=== PATIENT | male | born 1965 | race Caucasian/White ===

== ENCOUNTER 2019-04-02 23:36 | Emergency (ER) | payer OTHER ==
--- OUTSIDE RECORDS SUMMARY | 2019-04-02 23:51 | XMS REPORT | Continuity of Care Document ---
:1965 External Reference #:[id number] Author Name Benja Mclaughlin M.D. Address [address] [facility] [address] [place] [address] Care Team Providers Name Role Phone Benja Mclaughlin M.D. Care Team Information Quality Assurance Monitor Body Unavailable Payers Date Identification Numbers Payment Provider Subscriber Effective: 2014 Policy Number: [id number] 01 [employer] Mult[employer] Oswaldo Ding Group Number: [id number] [address] Group Name: [place] [address] PayID: [id number] Problems Active Problems Provider Date Pure hypercholesterolemia Benja Mclaughlin M.D. Onset: 11/02/2011 Family History Date Family Member(s) Observation Comments Father CAD started in his early to mid 50s; CABG x4 age 56 Father Diabetes, Type II Father Carotid Stenosis Number of Children 2 First Daughter Ethel 1990 First Daughter industrial arts public school teacher Second Daughter Vannesa 1992 Second Daughter industrial arts public school teacher Number of Siblings Siblings: 2 First Brother Skin Cancer pt unsure of type First Brother Walter 1961 Second Brother Edward 1963 Social History Type Date Description Comments Sex Unknown Marital Status Work Status Currently Working at [employer], for [employer] Use Reviewed: 11/21/14 Denies Cigarette Use Smoking Status Reviewed: 11/21/14 Denies Cigarette Use Tobacco Use Start: Unknown Non Smoker Exercise Exercises regularly Type/Frequency Allergies, Adverse Reactions, Alerts Active Allergies Reaction Severity Comments Date No Known Drug Allergy 01/10/2011 Medications Active Medications SIG Qnty Indications Ordering Date Provider Atorvastatin Calcium take one tablet by 90tabs E78.00 Benja Mclaughlin 02/2019 mouth every day for M.DBo 40mg Tablets high cholesterol History Medications Atorvastatin Calcium take 1 tablet daily 90tabs E78.00 Arnoldo, 2017 - to reduce Hai Yousif 11/16/2018 10mg Tablets cholesterol No Active Medications Unknown 02/18/2016 - 12/15/2017 Clarithromycin 1 bid 20tabs J06.9 Lionel Jesus 02/08/2016 - 500mg Hai Rivera 02/18/2016 Tablets No Active Medications Unknown 11/21/2014 - 02/08/2016 No Active Medications Unknown 11/24/2013 - 11/24/2013 Atorvastatin Calcium take 1 tablet daily 90tabs 272.0 Arnoldo, 11/24/2013 - to reduce Hai Yousif 11/20/2014 10mg Tablets cholesterol; fasting bloodwork needed about 2 months after starting this med Azithromycin 2 by mouth on day 6tabs 786.2 Arnoldo 10/29/2013 - 250mg then 1 by mouth Hai Yousif 11/03/2013 Tablets daily for 4 more days Benzonatate 1-2 by mouth three 30caps 786.2 Arnoldo, 10/29/2013 - 100mg times a day as Hai Yousif 11/08/2013 Capsules needed for cough No Active Medications Unknown 11/08/2011 - 10/29/2013 Azithromycin 2 by mouth on day 6tabs 786.2 Arnoldo, 11/02/2011 - 250mg then 1 by mouth Hai Yousif 11/07/2011 Tablets daily for 4 more days Magnesium Citrate drink the contents 296ml 564.09 Arnoldo, 01/11/2011 - of 1 bottle, for Hai Yousif 11/01/2011 1.745GM/30ML Solution constipation Immunizations CPT Code Status Date Vaccine Lot # [id number] Given 09/16/2015 Influenza Virus Vaccine, Quadrivalent, Split, [id number] Preservative Free 20338 Given 11/02/2011 Adacel or Boostrix, TDaP [id number] Refused 11/08/2017 Influenza Virus Vaccine, Quadrivalent, Split, Preservative Free [id number] Refused 11/02/2011 Flu, Split Virus 3Yrs Vital Signs Date Vital Result Comment 03/29/2019 2:54pm BP Systolic 118 mmHg per nurse BP Diastolic 68 mmHg per nurse BP Systolic Recheck 148 mmHg R arm sitting; 134/83 w/ auto cuff BP Diastolic Recheck 90 mmHg R arm sitting; 134/83 w/ auto cuff Weight 211.00 lb 11/16/2018 9:55am BP Systolic 120 mmHg BP Diastolic 80 mmHg Heart Rate 72 /min reg Respiratory Rate 12 /min not laboured Height 70.75 inches 5'10.75" Weight 218.00 lb BMI (Body Mass Index) 30.6 kg/m2 11/08/2017 8:45am BP Systolic 122 mmHg BP Diastolic 80 mmHg Heart Rate 70 /min reg Respiratory Rate 12 /min not laboured Height 70.75 inches 5'10.75" Weight 209.00 lb BMI (Body Mass Index) 29.4 kg/m2 02/08/2016 10:10am BP Systolic 118 mmHg BP Diastolic 80 mmHg Body Temperature 98.3 F 02/04/2016 5:56pm BP Systolic 120 mmHg BP Diastolic 82 mmHg Body Temperature 98.8 F Weight 214.00 lb with shoes 09/16/2015 1:45pm BP Systolic 112 mmHg BP Diastolic 78 mmHg Height 70.75 inches 5'10.75" Weight 207.00 lb BMI (Body Mass Index) 29.1 kg/m2 11/21/2014 11:25am BP Systolic 116 mmHg BP Diastolic 78 mmHg Body Temperature 98.8 F Height 71.5 inches 5'11.50" Weight 218.00 lb BMI (Body Mass Index) 30.0 kg/m2 10/29/2013 12:11pm BP Systolic 124 mmHg BP Diastolic 82 mmHg Body Temperature 98.6 F Height 70.5 inches 5'10.50" Weight 214.00 lb BMI (Body Mass Index) 30.3 kg/m2 11/02/2011 2:03pm BP Systolic 118 mmHg BP Diastolic 78 mmHg Body Temperature 98.3 F Height 71.50 inches 5'11.50" Weight 214.00 lb BMI (Body Mass Index) 29.4 kg/m2 01/10/2011 2:53pm BP Systolic 120 mmHg BP Diastolic 80 mmHg BP Systolic Recheck 120 mmHg R arm sitting BP Diastolic Recheck 80 mmHg R arm sitting Heart Rate 68 /min reg Respiratory Rate 12 /min not laboured Height 71.50 inches 5'11.50" Weight 207.00 lb BMI (Body Mass Index) 28.5 kg/m2 Results Test Date Facility Test Result H/L Range Note Urine Micro Inhouse 11/16/2018 In House Ua WBC - 1 Ua RBC 0-2 Ua Casts - Ua Epi - Ua Other - Ua Glucose - Ua Bilirubin - Ua Ketones tr Ua Specific Monarch 1.025 Ua Blood H Tr Ua PH 6.0 Ua Protein - Ua Urobilinogen - Ua Nitrite - Ua Leukocytes - Laboratory test finding 11/16/2018 [facility] Alt 44 U/L N 7-52 2 [phone] Lipid Profile 11/16/2018 [facility] Triglycerides 116 mg/dL 3 (Trig/Chol/HDL) [phone] Cholesterol 282 mg/dL 4 HDL Cholesterol 52.5 mg/dL 5 LDL Cholesterol 206 mg/dL 6 Lipid Profile (Trig/Chol/HDL) 11/08/2017 [facility] Triglycerides 165 mg/dL 7 [phone] Cholesterol 274 mg/dL 8 HDL Cholesterol 48.8 mg/dL 9 LDL Cholesterol 192 mg/dL 10 Laboratory test 11/08/2017 [facility] Alt 33 U/L N 7-52 11 finding [phone] Laboratory test 02/04/2016 In House Culture Throat negative finding Laboratory test 10/26/2015 [facility] Surgical SEE RESULT 12 finding [phone] Pathology BELOW Liver Function 09/09/2015 [facility] Total Protein 6.5 g/dL N 6.4- 8.9 Panel [phone] Albumin 4.3 g/dL N 3.2-5.2 Globulin 2.2 g/dL N 2-4 Albumin/Globulin Ratio 2.0 N 1-3 Total Bilirubin 0.70 mg/dL N 0.2-1.0 Direct Bilirubin 0.10 mg/dL N 0.03-0.18 Indirect Bilirubin 0.6 mg/dL N 0.3-1.0 Alkaline Phosphatase 59 U/L N 34-104 Alt 32 U/L N 7-52 Ast 28 U/L N 13-39 Lipid Profile 09/09/2015 [facility] Triglycerides 174 mg/dL N 13 (Trig/Chol/HDL) [phone] Cholesterol 223 mg/dL N 14 HDL Cholesterol 35.2 mg/dL N 15 LDL Cholesterol 153 mg/dL N 16 Rapid Influenza A 11/19/2014 [facility] Rapid Influenza A NEGATIVE 17 B Antigen [phone] B Antigen Laboratory test 11/19/2014 [facility] Troponin I 0.00 ng/mL N <0.03 18 finding [phone] CBC Auto Diff 11/19/2014 [facility] White Blood Count 5.8 10^3/uL N 4.8-10. [phone] Red Blood Count 5.14 10^6/uL N 4.0-5.4 Hemoglobin 16.6 g/dL N 14.0-18.0 Hematocrit 47 % N 42-52 Mean Corpuscular Volume 91 fL N 80-94 Mean Corpuscular Hemoglobin 32 pg High 27-31 Mean Corpuscular HGB Conc 35 g/dL N 31-36 Red Cell Distribution Width 13 % N 10.5-15 Platelet Count 157 10^3/uL N 150-450 Mean Platelet Volume 10 um3 N 7.4-10.4 Abs Neutrophils 3.5 10^3/uL N 1.5-7.7 Abs Lymphocytes 1.3 10^3/uL N 1.0-4.8 Abs Monocytes 0.8 10^3/uL N 0-0.8 Abs Eosinophils 0.1 10^3/uL N 0-0.6 Abs Basophils 0 10^3/uL N 0-0.2 Abs Nucleated RBC 0 10^3/uL N Granulocyte % 59.8 % N 38-83 Lymphocyte % 22.5 % Low 25-47 Monocyte % 14.5 % High 1-9 Eosinophil % 2.3 % N 0-6 Basophil % 0.9 % N 0-2 Nucleated Red Blood Cells % 0.1 N Comp Metabolic Panel 11/19/2014 [facility] Sodium 136 mmol/L N 133- 145 [phone] Potassium 3.6 mmol/L N 3.5-5.0 Chloride 102 mmol/L N 101-111 Co2 Carbon Dioxide 27 mmol/L N 22-32 Anion Gap 7 mmol/L N 2-11 Glucose 107 mg/dL High 70-100 Blood Urea Nitrogen 17 mg/dL N 6-24 Creatinine 1.18 mg/dL High 0.67-1.17 BUN/Creatinine Ratio 14.4 N 8-20 Calcium 9.3 mg/dL N 8.6-10.3 Total Protein 7.6 g/dL N 6.4-8.9 Albumin 4.4 g/dL N 3.2-5.2 Globulin 3.2 g/dL N 2-4 Albumin/Globulin Ratio 1.4 N 1-3 Total Bilirubin 0.80 mg/dL N 0.2-1.0 Alkaline Phosphatase 70 U/L N 34-104 Alt 73 U/L High 7-52 Ast 48 U/L High 13-39 Egfr Non- 65.6 N >60 Egfr 84.4 N >60 19 Laboratory test 11/19/2014 [facility] Creatine 256 U/L High 10-223 finding [phone] Kinase CKMB 11/19/2014 [facility] CKMB ng/mL 3.1 ng/mL N 0.6-6.3 [phone] Laboratory test 11/19/2014 [facility] Troponin I 0.00 ng/mL N <0.03 20 finding [phone] Inr/Protime 11/19/2014 [facility] Inr 0.87 N 0.85-1.06 [phone] Laboratory test 11/19/2014 [facility] Activated 29.8 seconds N 24.0- 36.1 finding [phone] Partial Thrombo Time C Reactive Protein 17.20 mg/L High < 5.00 21 D Dimer Quantitative < 200 ng/mL N Less Than 230 22 Erythrocyte Sed Rate 17 mm/Hr High 0-14 CBC With Manual 01/10/2011 [facility] White Blood Count 6.6 CUMM 4.8 -10.8 Diff [phone] Red Cell Count 5.05 CUMM 4.6-6.2 Hemoglobin 15.8 g/dL 14.0-18.0 Hematocrit 46 % 42-52 Mean Corpuscular Volume 91 um3 80-94 Mean Corpuscular Hemoglob 31 pg 27-31 Mean Corpuscular HGB Cone 34 g/dL 32-36 Redcell Distribution WDTH 13 % 10.5-15 Platelet Count 180 CUMM 150-450 Mean Platelet Volume 10.6 um3 High 7.4-10.4 Polysegmented Neutrophil 78 % 38-83 Band Neutrophil 4 % 0-8 Lymphocyte 14 % Low 25-47 Monocyte 4 % 0-13 Absolute Neutrophil Count 5.4 RBC Morphology NORMAL Comp Metabolic Panel 01/10/2011 [facility] Sodium 139 mmol/L 135- 145 [phone] Potassium 4.5 mmol/L 3.5-5.0 Chloride 103 mmol/L 101-111 Co2 (Carbon Dioxide) 28.0 mmol/L 22-32 Anion Gap 8.0 mmol/L 2-11 23 Glucose 69 mg/dL Low 70-100 BUN 20 mg/dL 6-24 Creatinine 1.20 mg/dL 0.50-1.40 One Over Creatinine 0.80 BUN/Creatinine Ratio 16.7 8-20 Calcium 9.3 mg/dL 8.1-9.9 Total Protein 7.0 GM/DL 6.2-8.1 Albumin 4.5 GM/DL 3.6-5.4 Globulin 2.5 GM/DL 2-4 Albumin/Globulin Ratio 1.8 1-3 Bilirubin Total 1.2 mg/dL 0.4-1.5 24 Alkaline Phosphatase 67 U/L 39-117 Alt (SGPT) 30 U/L 17-63 Ast (Sgot) 40 U/L 12-42 eGFR Non- 65.5 > 60 eGFR 84.2 > 60 25 1 void, clear, yellow 2 FASTING 12 HOUR 3 Desirable: <150 Borderline High: 150-199 High: 200-499 Very High: >500 4 Desirable: <200 Borderline High: 200-239 High: >239 5 Low: <40 Desirable: 40-60 High: >60 6 Desirable: <100 Near Optimal: 100-129 Borderline High: 130-159 High: 160-189 Very High: >189 7 Desirable: <150 Borderline High: 150-199 High: 200-499 Very High: >500 8 Desirable: <200 Borderline High: 200-239 High: >239 9 Low: <40 Desirable: 40-60 High: >60 10 Desirable: <100 Near Optimal: 100-129 Borderline High: 130-159 High: 160-189 Very High: >189 11 FASTING 12 HOUR 12 SEE RESULT BELOW Name: OSWALDO DING : [address]: Micah Sawyer MD Acct: [id number] Unit: [id number] AGE: 50 Location: ENDOCEC Re10/26/15 SEX: M Status: REG REF SPEC: [id number] MARYANN: 10/26/15-1314 [facility] DR: Micah Sawyer MD REQ: [id number] RECD: 10/26/15 STATUS: NAFISA CAIN DR: Benja Mclaughlin MD _ ORDERED: LEVEL IV FINAL DIAGNOSIS Colon, distal sigmoid, biopsy: -- Tubular adenoma. -- No high grade dysplasia or malignancy. CLINICAL HISTORY Usual bowel habit - every day with no blood. Negative family history POST-OPERATIVE DIAGNOSIS Colonoscopy to cecum with ease, excellent prep - 1 lesion only. Sigmoid polyp; 5 years GROSS DESCRIPTION The specimen is received in formalin labeled, Biopsy Distal Sigmoid Polyp, and consists of three starr irregular soft tissue fragments ranging from 0.3 x 0.3 x 0.2 cm to 0.5 x 0.2 x 0.2 cm, which are submitted entirely in one cassette. Signed (signature on file) Mayda Henao MD [id number] END OF REPORT * ML=Testing performed at Main Lab DEPARTMENT OF PATHOLOGY, [address] [place] [id number] Luke Donovan M.D. Director [facility] # [id number] 13 Desirable <150 Borderline high 150-199 High 200-499 Very High >500 14 Desirable <200 Borderline high 200-239 High >239 15 Low <40 Desirable: 40-60 High: >60 16 Desirable: <100 mg/dL Near Optimal: 100-129 mg/dL Borderline High: 130-159 mg/dL High: 160-189 mg/dL Very High: >189 mg/dL 17 RUN DATE: 11/20/14 [facility] LAB LIVE PAGE 1 RUN TIME: [address] [place] [address] Specimen Inquiry Name: OSWALDO DING : [address]: Jesús Mora MD Acct: [id number] Unit: [id number] AGE: 49 Location: ED Re11/19/14 SEX: M Status: DEP ER SPEC: [id number] MARYANN: 11/19/[address]: Jefferson Saldana DEVELOPER RELATIONS MANAGER REQ: [id number] RECD: 11/19/14 STATUS: ISABELA CAIN DR: Benja Mora MD _ SOURCE: [facility]: ORDERED: Rapid Flu A B Procedure Result Verified Site Rapid Influenza A B Antigen Final 11/20/14- 0640 ML Organism 1 Negative Influenza A B Antigen testing by enzyme immunoassay. Cell culture testing can be performed to confirm negative test results and to assist in detecting other viruses that can produce similar clinical symptoms. Please notify Microbiology Lab if further testing is desired. END OF REPORT * ML=Testing performed at Main Lab DEPARTMENT OF PATHOLOGY, [address] [place] [address] Luke Donovan M.D. Director [facility] # [id number] 18 Reference Range and Interpretation: TnI (ng/mL) Interpretation Less Than 0.03 ng/mL Not supportive of diagnosis of [place] 0.03 - 0.50 ng/mL Indeterminate: suggest serial studies if clinically indicated. Greater than 0.5 ng/mL Consistent with diagnosis of [place] 19 Because ethnic data is not always readily available, this report includes an eGFR for both -Americans and non- Americans. The National Kidney Disease Education Program (NKDEP) does not endorse the use of the MDRD equation for patients that are not between the ages of 18 and 70, are , have extremes of body size, muscle mass, or nutritional status, or are non- or non-. According to the National Kidney Foundation, irrespective of diagnosis, the stage of the disease is based on the level of kidney function: Stage Description GFR(mL/min/1.73 m(2)) 1 Kidney damage with normal or decreased GFR 90 2 Kidney damage with mild decrease in GFR 60-89 3 Moderate decrease in GFR 30-59 4 Severe decrease in GFR 15-29 5 Kidney failure <15 (or dialysis) 20 Reference Range and Interpretation: TnI (ng/mL) Interpretation Less Than 0.03 ng/mL Not supportive of diagnosis of [place] 0.03 - 0.50 ng/mL Indeterminate: suggest serial studies if clinically indicated. Greater than 0.5 ng/mL Consistent with diagnosis of [place] 21 Acute inflammation: >10.00 22 Please note: The following may produce a false positive D Dimer test: - Rheumatoid factor greater than 60 IU/ml - Plasma hemoglobin greater than 0.05 gm/dl - Bilirubin greater than 50 mg/dl - Lipids greater than 1000 mg/dl - FDP greater than 20 ug/ml 23 Anion gap measurement may be of limited value in the presence of any alkalosis, especially in a combined acid base disorder. . 24 A metabolite of Naproxen, O-desmethylnaproxen, has been shown to interfere with the Jendrassik-Jose method for measuring total bilirubin. Samples from patients who have taken Naproxen have shown spurious elevation in total bilirubin levels. 25 Because ethnic data is not always readily available, this report includes an eGFR for both -Americans and non- Americans. The National Kidney Disease Education Program (NKDEP) does not endorse the use of the MDRD equation for patients that are not between the ages of 18 and 70, are , have extremes of body size, muscle mass, or nutritional status, or are non- or non-. According to the National Kidney Foundation, irrespective of diagnosis, the stage of the disease is based on the level of kidney function: Stage Description GFR(mL/min/1.73 m(2)) 1 Kidney damage with normal or decreased GFR 90 2 Kidney damage with mild decrease in GFR 60-89 3 Moderate decrease in GFR 30-59 4 Severe decrease in GFR 15-29 5 Kidney failure <15 (or dialysis) Procedures Date Code Description Status 10/26/2015 [id number] Colonoscopy Completed Encounters Type Date Location Provider Dx Diagnosis Office Visit 03/29/2019 Main Office Benja Mclaughlin, R42 Dizziness and 2:00p Hai giddiness Office Visit 11/16/2018 Main Office Benja Mclaughlin, Z00.00 Encntr for general 9:45a M.D. adult medical exam w/o abnormal findings E78.00 Pure hypercholesterolemia, unspecified Z23 Encounter for immunization Office Visit 11/08/2017 8:30a Main Office Benja Mclaughlin Z00.00 Encntr for M.DBo general adult medical exam w/o abnormal findings E78.00 Pure hypercholesterolemia, unspecified Z71.89 Other specified counseling Office Visit 02/08/2016 10:00a Main Office Lionel Spaulding06.9 Acute upper Hai Rivera respiratory infection, unspecified Office Visit 02/04/2016 5:00p Main Office Lionel Chun.9 Acute upper Hai Rivera respiratory infection, unspecified J02.9 Acute pharyngitis, unspecified J02.8 Acute pharyngitis due to other specified organisms Office Visit 09/16/2015 Main Office Arnoldo E78.0 Pure hypercholesterolemia 1:30p Hai Yousif R74.0 Nonspec elev of levels of transamns & lactic acid dehydrgnse Z12.11 Encounter for screening for malignant neoplasm of colon D48.5 Neoplasm of uncertain behavior of skin Z23 Encounter for immunization Z41.8 Encntr for oth proc for purpose oth [facility] Office Visit 11/21/2014 11:00a Main Office Benja Mclaughlin, 786.50 Pain Chest M.D. Unspec 272.0 Hypercholesterolemia Pure 790.4 Transaminase Or Lactic Acid Dehydrogenase Elevation Nonspec 465.9 URI Upper Respiratory Infections Acute Unspec Sites 786.2 Cough Office Visit 10/29/2013 11:30a Main Office Benja Mclaughlin, 465.9 URI Upper M.D. Respiratory Infections Acute Unspec Sites 786.2 Cough 272.0 Hypercholesterolemia Pure Office Visit 11/02/2011 1:30p Main Office Benja Mclaughlin, 465.9 URI Upper M.D. Respiratory Infections Acute Unspec Sites 786.2 Cough 272.0 Hypercholesterolemia Pure V65.49 Counseling Other Spec V06.1 Cmqynwsftk-Wecyvjz-Gzpreaca Combined (DTaP) V07.2 Prophylactic Immunotherapy Office Visit 01/10/2011 2:15p Main Office Benaj Mclaughlin, 780.4 Dizziness & M.D. Giddiness 787.02 Nausea Alone 789.07 Pain Abdominal Generalized 780.94 Early Satiety Plan of Treatment Future Appointment(s):11/18/2019 2:00 pm - Benja Mclaughlin M.D. at Main [id number]/29/2019 - Benja Mclaughlin M.D.R42 Dizziness and giddinessComments: Very mild and fleeting Sxs, more an off balance than an true vertiginous feeling. Cause NYD. No red flags. Advised observation alone. If Sxs very persistent or worsening he will RTO.
[2019-04-02] MEDS ORDERED: NS 0.9% 1000 ML** 1,000 ML IV ONE (23:58)
[2019-04-03 00:42] LABS: ABS Eosinophils 0.1 10^3/ul (0-0.6); ABS Lymphocytes 1.4 10^3/ul (1.0-4.8); ABS Monocytes 0.5 10^3/ul (0-0.8); ABS Neutrophils 5.5 10^3/ul (1.5-7.7); Eosinophil % 1.2 %; Hematocrit 47 % (42-52); Mean Corpuscular HGB Conc 34 g/dL (31-36); Mean Corpuscular Hemoglobin 31 pg (27-31); Mean Corpuscular Volume 91 fL (80-94); Mean Platelet Volume 9.9 fL (7.4-10.4); Nucleated Red Blood Cells % 0.1; Platelet Count 166 10^3/uL (150-450); Red Blood Count 5.17 10^6 /uL (4.18-5.48); Red Cell Distribution Width 14 % (10.5-15); White Blood Count 7.6 10^3/uL (3.5-10.8)
[2019-04-03 00:56] LABS: INR 0.93 (0.82-1.09)
[2019-04-03 00:58] LABS: Albumin 4.6 g/dL (3.2-5.2); Albumin/Globulin Ratio 1.6 (1-3); BUN/Creatinine Ratio 18.1 (8-20); Calcium 9.5 mg/dL (8.6-10.3); EGFR African American 89.1 (>60); EGFR Non-African American 73.6 (>60); Globulin 2.9 g/dL (2-4); Magnesium 2.3 mg/dL (1.9-2.7); Potassium 4.3 mmol/L (3.5-5.0); Total Bilirubin 0.6 mg/dL (0.2-1.0); Total Protein 7.5 g/dL (6.4-8.9)
[2019-04-03 01:00] LABS: Troponin I 0.01 ng/mL (<0.04)
[2019-04-03 01:12] LABS: TSH (Thyroid Stimulating Horm) 2.75 mcIU/mL (0.34-5.60)
--- NOTE | 2019-04-03 01:15 | ED ---
Complex/Multi-Sys Presentation - HPI Summary HPI Summary: Patient is a 54 y/o M presenting to ED with complaints of episodes of dizziness , left sided facial tingling, neck stiffness. He reports episodes of such Sx onset around two weeks ago with an episode tonight last a couple of hours. Dizziness is described as light-headedness, patient denies any room-spinning sensation. In the room, he notes some light-headedness present that is less severe than previously. Patient reports occasional intermittent posterior headaches but denies any at present. Urinary Sx and fever are denied, no known tick bites. He notes that he is outside frequently. Patient additionally states that Sx have typically onset after eating food and notes that he has always needed to have a bowel movement once Sx onset. He reports having a recent increase of his cholesterol medication that he cannot recall the name of at this time. FMHx of HLD, cardiac disease, father from cardiac disease at 86. Patient is not a smoker. On triage, pain is denied, nothing is noted to aggravate/alleviate Sx. Home medications and allergies are reviewed. - History Of Current Complaint Chief Complaint: EDDizziness Time Seen by Provider: 04/03/19 01:01 Hx Obtained From: Patient Onset/Duration: Lasting Hours - episode tonight, Lasting Weeks - episodes onset two weeks ago, Still Present - light headed Timing: Intermittent, Lasting:, Hours - episode tonight, Weeks - episodes onset two weeks ago Severity Currently: None Location: Pain At: - posterior GRULLON Character: Typical Headache Aggravating Factor(s): nothing Alleviating Factor(s): nothing Associated Signs And Symptoms: Positive: Dizziness, Other - POSITIVE - NECK STIFFNESS, LEFT SIDED FACIAL TINGLING, OCCASIONAL INTERMITTENT GRULLON; NEGATIVE - URINARY SX, TICK BITES. Negative: Fever - Allergies/Home Medications Allergies/Adverse Reactions: Allergies Allergy/AdvReac Type Severity Reaction Status Date / Time No Known Allergies Allergy Verified 04/02/19 23:44 Home Medications: Home Medications Atorvastatin* [Lipitor*] 40 mg PO QPM 04/03/19 [History Confirmed 04/03/19] PMH/Surg Hx/FS Hx/Imm Hx Sensory History: Denies: Hx Legally Blind, Hx Deafness Opthamlomology History: Denies: Hx Legally Blind EENT History: Denies: Hx Deafness Infectious Disease History: No Infectious Disease History: Denies: Traveled Outside the [place] in Last 30 Days - Family History Known Family History: Positive: Cardiac Disease, Other - FMHX OF HLD - Social History Alcohol Use: Occasionally Substance Use Type: Reports: None Smoking Status (MU): Never Smoked Tobacco Review of Systems Constitutional: Other - NEGATIVE - RECENT TICK BITES Negative: Fever Positive: no symptoms reported - NO URINARY SYMPTOMS REPORTED Musculoskeletal: Other - POSITIVE - NECK STIFFNESS Neurological: Other - POSITIVE - DIZZINESS, TINGLING OF LEFT FACE Positive: Headache All Other Systems Reviewed And Are Negative: Yes Physical Exam - Summary Physical Exam Summary: Appearance: well appearing, no pain distress Skin: warm, dry, reflects adequate perfusion Head/face: normal Eyes: EOMI, ANNIE ENT: mucous membranes moist Neck: supple, non-tender Respiratory: CTA, breath sounds present Cardiovascular: RRR, pulses symmetrical Abdomen: non-tender, soft Bowel Sounds: present Musculoskeletal: normal, strength/ROM intact Neuro: normal, sensory motor intact, A&Ox3, GCS 15, NIH 0, negative hallpike test Triage Information Reviewed: Yes Vital Signs On Initial Exam: Initial Vitals Temp Pulse Resp BP Pulse Ox 97.8 F 71 16 136/102 98 04/02/19 23:43 04/02/19 23:43 04/02/19 23:43 04/02/19 23:43 04/02/19 23:43 Vital Signs Reviewed: Yes Diagnostics - Vital Signs Vital Signs Temp Pulse Resp BP Pulse Ox 04/03/19 01:00 74 140/87 04/02/19 23:43 97.8 F 71 16 136/102 98 - Laboratory Lab Results: Lab Results 04/03/19 04/03/19 04/03/19 Range/Units 00:31 00:31 00:31 WBC 7.6 (3.5-10.8) 10^3/uL RBC 5.17 (4.18-5.48) 10^6 /uL Hgb 16.0 (14.0-18.0) g/dL Hct 47 (42-52) % MCV 91 (80-94) fL MCH 31 (27-31) pg MCHC 34 (31-36) g/dL RDW 14 (10.5-15) % Plt Count 166 (150-450) 10^3/uL MPV 9.9 (7.4-10.4) fL Neut % (Auto) 72.1 % Lymph % (Auto) 19.0 % [place] % (Auto) 7.1 % Eos % (Auto) 1.2 % Baso % (Auto) 0.6 % Absolute Neuts (auto) 5.5 (1.5-7.7) 10^3/ul Absolute Lymphs (auto) 1.4 (1.0-4.8) 10^3/ul Absolute Monos (auto) 0.5 (0-0.8) 10^3/ul Absolute Eos (auto) 0.1 (0-0.6) 10^3/ul Absolute Basos (auto) 0.0 (0-0.2) 10^3/ul Absolute Nucleated RBC 0.0 10^3/ul Nucleated RBC % 0.1 INR (Anticoag Therapy) 0.93 (0.82-1.09) Sodium 137 (135-145) mmol/L Potassium 4.3 (3.5-5.0) mmol/L Chloride 105 (101-111) mmol/L Carbon Dioxide 27 (22-32) mmol/L Anion Gap 5 (2-11) mmol/L BUN 19 (6-24) mg/dL Creatinine 1.05 (0.67-1.17) mg/dL Est GFR ( Amer) 89.1 (>60) Est GFR (Non-Af Amer) 73.6 (>60) BUN/Creatinine Ratio 18.1 (8-20) Glucose 119 H (70-100) mg/dL Lactic Acid (0.5-2.0) mmol/L Calcium 9.5 (8.6-10.3) mg/dL Magnesium 2.3 (1.9-2.7) mg/dL Total Bilirubin 0.60 (0.2-1.0) mg/dL AST 26 (13-39) U/L ALT 38 (7-52) U/L Alkaline Phosphatase 82 (34-104) U/L Troponin I 0.01 (<0.04) ng/mL Total Protein 7.5 (6.4-8.9) g/dL Albumin 4.6 (3.2-5.2) g/dL Globulin 2.9 (2-4) g/dL Albumin/Globulin Ratio 1.6 (1-3) TSH Pending 04/03/19 Range/Units 00:31 WBC (3.5-10.8) 10^3/uL RBC (4.18-5.48) 10^6 /uL Hgb (14.0-18.0) g/dL Hct (42-52) % MCV (80-94) fL MCH (27-31) pg MCHC (31-36) g/dL RDW (10.5-15) % Plt Count (150-450) 10^3/uL MPV (7.4-10.4) fL Neut % (Auto) % Lymph % (Auto) % [place] % (Auto) % Eos % (Auto) % Baso % (Auto) % Absolute Neuts (auto) (1.5-7.7) 10^3/ul Absolute Lymphs (auto) (1.0-4.8) 10^3/ul Absolute Monos (auto) (0-0.8) 10^3/ul Absolute Eos (auto) (0-0.6) 10^3/ul Absolute Basos (auto) (0-0.2) 10^3/ul Absolute Nucleated RBC 10^3/ul Nucleated RBC % INR (Anticoag Therapy) (0.82-1.09) Sodium (135-145) mmol/L Potassium (3.5-5.0) mmol/L Chloride (101-111) mmol/L Carbon Dioxide (22-32) mmol/L Anion Gap (2-11) mmol/L BUN (6-24) mg/dL Creatinine (0.67-1.17) mg/dL Est GFR ( Amer) (>60) Est GFR (Non-Af Amer) (>60) BUN/Creatinine Ratio (8-20) Glucose (70-100) mg/dL Lactic Acid 1.1 (0.5-2.0) mmol/L Calcium (8.6-10.3) mg/dL Magnesium (1.9-2.7) mg/dL Total Bilirubin (0.2-1.0) mg/dL AST (13-39) U/L ALT (7-52) U/L Alkaline Phosphatase (34-104) U/L Troponin I (<0.04) ng/mL Total Protein (6.4-8.9) g/dL Albumin (3.2-5.2) g/dL Globulin (2-4) g/dL Albumin/Globulin Ratio (1-3) TSH Result Diagrams: 04/03/19 00:31 04/03/19 00:31 Lab Statement: Any lab studies that have been ordered have been reviewed, and results considered in the medical decision making process. - CT BRAIN CT CT Interpretation Completed By: Radiologist Summary of CT Findings: BRAIN CT IMPRESSION: No acute intracranial abnormality. THIS REPORT WAS REVIEWED BY DR. SANTANA. - EKG 0013 Cardiac Rate: NL - rate of 60 BPM EKG Rhythm: Sinus Rhythm ST Segment: Non-Specific Summary of EKG Findings: EKG showed sinus rhythm with rate of 60 BPM, normal axis, normal intervals, non-specific ST. National Institutes Of Health - NIH Scale Level of Consciousness: Alert/Keenly Responsive Ask Patient the Month and His/Her Age: Both Correct Ask Pt to Open/Close Eyes and Recapper/Release Non-Paretic Hand: Both Correctly Best Gaze (Only Horizontal Eye Movement): Normal Visual Field Testing: No Visual Loss Facial Paresis-Pt to Smile & Close Eyes or Grimace Symmetry: Normal/Symmetrical Motor Function - Right Arm: No Drift-Holds 10 Seconds Motor Function - Left Arm: No Drift-Holds 10 Seconds Motor Function - Right Leg: No Drift-Holds 10 Seconds Motor Function - Left Leg: No Drift-Holds 10 Seconds Limb Ataxia-Must be out of Proportion to Weakness Present: Absent Sensory (Use Pinprick to Test Arms/Legs/Trunk/Face): Normal Best Language (Describe Picture, Name Items): No Aphasia Dysarthria (Read Several Words): Normal Extinction and Inattention: No Abnormality Total Score: 0 Complex Multi-Symp Course/Dx Course Of Treatment: Patient with intermittent lightheadedness over several days. He has normal laboratories and a normal head CT. EKG is normal and his NIH stroke score is 0. Hallpike testing is negative. He was taking full oral without issue. Lyme testing is presently pending. He will follow closely with primary care physician. - Diagnoses Differential Diagnoses/HQI/PQRI: Metabolic Abnormality, Other - Vertigo, anemia , electrolyte abnormality, Lyme disease Provider Diagnoses: Lightheadedness Discharge - Sign-Out/Discharge Documenting (check all that apply): Patient Departure - discharge Patient Received Moderate/Deep Sedation with Procedure: No - Discharge Plan Condition: Improved Disposition: HOME Patient Education Materials: Lightheadedness (ED) Referrals: Benja Mclaughlin MD [Primary Care Provider] - Additional Instructions: Call your doctor first thing in the morning to schedule prompt follow-up. Lyme disease testing will take several days. Return with persistent lightheadedness , passing out, severe headaches, worse, new symptoms or other concerns. - Billing Disposition and Condition Condition: IMPROVED Disposition: Home - Attestation Statements Document Initiated by Sriibe: Yes Documenting Scribe: YANN GANDARA Provider For Whom Keena is Documenting (Include Credential): NYLA SANTANA MD Scribe Attestation: I, YANN GANDARA, scribed for NYLA SANTANA MD on 04/03/19 at 0440. Scribe Documentation Reviewed: Yes Provider Attestation: The documentation as recorded by the scribeYANN accurately reflects the service I personally performed and the decisions made by me, NYLA SANTANA MD Status of Scribe Document: Viewed
[2019-04-03 02:26] VITALS: BP 118/79
== END 2019-04-03 02:24 | disposition home or self-care (01) ==
LOC: ED 23:36
DX: R42 Dizziness and giddiness (principal); R51 Headache
CPT/HCPCS: 36415; 70450; 80053; 83605; 83735; 84443; 84484; 85025; 85610; 86618; 93005; 99283

== ENCOUNTER 2019-09-05 11:20 | Emergency (ER) | payer OTHER ==
--- OUTSIDE RECORDS SUMMARY | 2019-09-05 11:32 | XMS REPORT | Continuity of Care Document ---
:1965 External Reference #:[id number] Author Name Addie Spears Problems Description No Information Available Social History Type Date Description Comments Sex Unknown Allergies, Adverse Reactions, Alerts Description No Information Available Medications Description No Information Available Immunizations Description No Information Available Vital Signs Description No Information Available Results Description No Information Available Procedures Description No Information Available Medical Devices Description No Information Available Encounters Description No Information Available Assessments Description No Information Available Plan of Treatment No Information Available Functional Status Description No Information Available Mental Status Description No Information Available Referrals Description No Information Available
--- OUTSIDE RECORDS SUMMARY | 2019-09-05 11:32 | XMS REPORT | Summary of Care ---
:1965 Author Organization [facility] Address [address] [place] [address] Care Team Providers Name Role Phone Benja Mclaughlin MD Primary Care Provider Reason for Visit Reason Comments Follow Up skin lesion Encounter Details Date Type Department Care Team Description 08/08/2019 Office Visit [facility] Ashley Mcfarlane, Skin lesion (Primary [address] PA-C Dx) [place] [id number] [address] [phone] [place] [id number] Allergies No Known Allergiesdocumented as of this encounter (statuses as of 08/09/2019) Medications No known medicationsdocumented as of this encounter (statuses as of 08/09/2019) Active Problems No known active problemsdocumented as of this encounter (statuses as of 2018) Social History Tobacco Use Types Packs/Day Years Used Date Never Smoker Smokeless Tobacco: Never Used Sex Assigned at Date Recorded Not on file Job Start Date Occupation Industry Not on file Not on file Not on file Travel History Travel Start Travel End No recent travel history available. documented as of this encounter Last Filed Vital Signs Vital Sign Reading Time Taken Comments Blood Pressure - - Pulse - - Temperature - - Respiratory Rate - - Oxygen Saturation - - Inhaled Oxygen Concentration - - Weight 90.7 kg (200 lb) 08/08/2019 1:11 PM EDT Height 180.3 cm (5' 11") 08/08/2019 1:11 PM EDT Body Mass Index 27.89 08/08/2019 1:11 PM EDT documented in this encounter Progress Notes Ashley Mcfarlane PA-C - 08/08/2019 1:00 PM EDTPATIENT: Brandt Michelle : 1965 DATE OF SERVICE: 08/08/2019 [facility] - Procedure PREOPERATIVE DIAGNOSIS: 1. ReExcision Dysplastic Nevus Central Back TITLE OF PROCEDURE: 1. Re-Excision of Upper Mid Back with dimensions of the excision measuring 2 cm in length. PROCEDURE IN DETAIL: The patient was identified and taken to the procedure room where informed consent was obtained and signed. The lesion was identified and a planned incision was drawn over the area.The area was then prepped with Chloraprep and injected with 2% Xylocaine with epinephrine. When adequate anesthesia was achieved, the lesion located on the central back was prepped with Chloraprep and draped in a sterile fashion. A #15 blade scalpel was used to re-excise the lesion with sufficient margins. The specimen was passed off of the surgical field for transport to pathology. Hemostasis was achieved. A 4-0 Nylon suture was used in a running fashion to close and approximate the skin edges. The wound closed very nicely, and the site was cleaned and dried. A dry dressing was applied. He was advised to avoid any vigorous activity or exercise, so as not to put too much tension on the repair. Post operative instructions were discussed with patient He may removed dressing tomorrow and shower over the incision. He will be notified of pathology as soon as it is available, and he will return in 10- 14 days for suture removal. PROCEDURE: Punch Biopsy/Excision Diagnosis: 1. Lesion of left upper back suprior measuring 0.2cm. 2. Lesion of left upper back inferior measuring 0.3cm Title of Procedure: 1. 5 mm Punch Biopsy excision of skin lesion of left upper back superior. 2. 5 mm Punch Biopsy excision of skin lesion of left upper back inferiior. Procedure in Detail: The patient provided informed consent after planned procedure discussed. The site was cleaned with Chloraprep and injected with 1% Xylocaine with epinephrine. Once local anesthesia was achieved, the areas were prepped with Chloraprep and draped in a sterile fashion. A 5 mm punch biopsy instrument was used to biopsy/excise each lesion and surrounding skin and subcutaneous tissue. The specimens were passed off the surgical field for transport to pathology. 4- 0 Nylon was used to close the biopsy sites.The area was gently cleansed with saline and dried. Bandaid dressing was applied. Patient may showerover the incisions beginning tomorrow, Sutures to be removed in 10-14 days. I will contact patient will results if available prior to post operative appointment. 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 Routine Skin lesion Ordered: 08/08/2019 EXCISION LESION Procedures Routine Skin lesion Ordered: 08/08/2019 Health Maintenance Due Date Last Done Comments DEPRESSION SCREENING 1977 HIV SCREENING 02/14/1980 DIABETES SCREENING 1983 LIPID DISORDER SCREENING 1983 HEPATITIS C SCREENING 2005 COLONOSCOPY SCREENING 2015 ZOSTER IMMUNIZATION SERIES (1 of 2) 2015 INFLUENZA VACCINE (#1) 2019 HPV IMMUNIZATION SERIES Aged Out No longer eligible based on patient's age to complete this topic MENINGOCOCCAL VACCINE IMM Aged Out No longer eligible based on patient's age to complete this topic PNEUMOCOCCAL 0-64 YRS Aged Out No longer eligible based on patient's age to complete this topic documented as of this encounter Results Not on filedocumented in this encounter Visit Diagnoses Diagnosis Skin lesion - Primary Unspecified disorder of skin and subcutaneous tissue documented in this encounter Insurance Payer Benefit Plan / Subscriber ID Effective Dates Phone Address Type Group [employer] xxxxxxxxxxx 2018-Present [employer] Guarantor Name Account Type Relation to Date of Phone Billing Patient Address [place] Personal/Family 1965 [phone] ([address]) [address] [phone] [place], [place] (Work) [id number] documented as of this encounter
[2019-09-05 11:55] LABS: ABS Basophils 0.1 10^3/ul (0-0.2); ABS Monocytes 0.4 10^3/ul (0-0.8); ABS Neutrophils 4.8 10^3/ul (1.5-7.7); Eosinophil % 0.1 %; Hematocrit 44 % (42-52); Hemoglobin 15.4 g/dL (14.0-18.0); Lymphocyte % 16.2 %; Mean Corpuscular HGB Conc 35 g/dL (31-36); Mean Corpuscular Hemoglobin 31 pg (27-31); Mean Corpuscular Volume 90 fL (80-94); Mean Platelet Volume 9.7 fL (7.4-10.4); Nucleated Red Blood Cells % 0.2; Platelet Count 179 10^3/uL (150-450); Red Blood Count 4.91 10^6 /uL (4.18-5.48); Red Cell Distribution Width 13 % (10-15); White Blood Count 6.3 10^3/uL (3.5-10.8)
[2019-09-05 12:07] LABS: Albumin 4.6 g/dL (3.2-5.2); Albumin/Globulin Ratio 1.8 (1-3); EGFR African American 86.2 (>60); EGFR Non-African American 71.3 (>60); Globulin 2.6 g/dL (2-4); Total Protein 7.2 g/dL (6.4-8.9)
[2019-09-05 12:11] LABS: INR 1.09 (0.82-1.09)
--- NOTE | 2019-09-05 13:21 | ED ---
HPI Cardiac - HPI Summary HPI Summary: This patient is a 54-year-old male with history of hypercholesterolemia who presents to the ED with feeling of dizziness 2 months, pressure in the upper anterior neck and back and epigastric area x approximately one week which was worse today. He states he had a f/u with his PCP after first noticing the intermittent dizziness and chest pain and had a holter monitor x 1 day with no findings (this was 1.5mos ago per pt). EKG normal. No blood work, however did obtain blood work 5 mos ago when being seen in the ED for dizziness and neck stiffness (same complaints as today). Lyme was negative. Trop was negative. EKG normal. Sxs are not worse with exertion, or better with rest. He endorses some worsening symptoms with swallowing food and drink and feels he has to chew his food much more now so he doesn't have the chest pressure feeling. Denies dizziness currently. He does have some hoarseness today per , which is new. Denies difficulty or pain with swallowing. Denies throat pain. No fevers , sweats or chills. Denies jaw pain. Has an appointment with Dr. Barber on September 18. Recently seen Edith Cuba from Dr. Mclaughlin's office on Monday last week, but did no further imaging or orders except for set up consult with cards. Fam hx includes father of [place] in late 50's. Mother healthy. Non-smoker, very rare alcohol use - last use 3 weeks ago Caffeine includes 1 cup of coffee per day Medications include: atorvastatin - History of Current Complaint Chief Complaint: EDChestPainROMI Stated Complaint: CHEST PAIN Time Seen by Provider: 09/05/19 11:30 Hx Obtained From: Patient Onset/Duration: Started Hours Ago Timing: Intermittent, Lasting Minutes Initial Severity: Moderate Current Severity: Moderate Pain Intensity: 6 Pain Scale Used: 0-10 Numeric Chest Pain Radiates: No Character: Dull/Aching Aggravating Factor(s): Nothing Alleviating Factor(s): Nothing Associated Signs and Symptoms: Positive: Chest Pain, Dizziness, Hoarseness. Negative: Vision Changes, Anxiety, Recent Stress, Headaches, Numbness, Tingling , Weakness, Shortness of Breath, Palpitations, Cough, Productive Cough, Nonproductive Cough, Calf Pain/Swelling, Vomiting, Bloody Sputum - Allergy/Home Medications Allergies/Adverse Reactions: Allergies Allergy/AdvReac Type Severity Reaction Status Date / Time No Known Allergies Allergy Verified 04/02/19 23:44 PMH/Surg Hx/FS Hx/Imm Hx Previously Healthy: Yes Sensory History: Denies: Hx Legally Blind, Hx Deafness Opthamlomology History: Denies: Hx Legally Blind - Immunization History Hx Pertussis Vaccination: No Immunizations Up to Date: Yes Infectious Disease History: Unable to Obtain/Confirm Infectious Disease History: Denies: Traveled Outside the [place] in Last 30 Days - Family History Known Family History: Positive: Cardiac Disease, Other - FMHX OF HLD - Social History Occupation: Employed Full-time Lives: With Family Alcohol Use: Occasionally Hx Substance Use: No Substance Use Type: Reports: None Hx Tobacco Use: No Smoking Status (MU): Never Smoked Tobacco Review of Systems Negative: Fever, Chills, Fatigue, Skin Diaphoresis Positive: Palpitations, Chest Pain Negative: Shortness Of Breath, Cough Negative: Abdominal Pain, Vomiting, Diarrhea, Nausea Genitourinary: Negative Positive: no symptoms reported, see HPI Positive: Arthralgia - upper back pain Skin: Negative Negative: Anxious, Depressed All Other Systems Reviewed And Are Negative: Yes Physical Exam Triage Information Reviewed: Yes Vital Signs On Initial Exam: Initial Vitals Temp Pulse Resp BP Pulse Ox 99.2 F 77 18 131/76 100 09/05/19 11:22 09/05/19 11:22 09/05/19 11:22 09/05/19 11:22 09/05/19 11:22 Vital Signs Reviewed: Yes Appearance: Positive: Well-Appearing, Well-Nourished Skin: Positive: Warm, Skin Color Reflects Adequate Perfusion Head/Face: Positive: Normal Head/Face Inspection Eyes: Positive: EOMI, ANNIE, Conjunctiva Clear Neck: Positive: Supple, No Lymphadenopathy Respiratory/Lung Sounds: Positive: Clear to Auscultation, Breath Sounds Present Cardiovascular: Positive: Normal, RRR, Pulses are Symmetrical in both Upper and Lower Extremities. Negative: Tachycardia, Leg Edema Left, Leg Edema Right Abdomen Description: Positive: Nontender. Negative: CVA Tenderness (R), CVA Tenderness (L) Musculoskeletal: Positive: Normal, Strength/ROM Intact Neurological: Positive: Speech Normal Psychiatric: Positive: Normal, Affect/Mood Appropriate AVPU Assessment: Alert Procedures - Sedation Patient Received Moderate/Deep Sedation with Procedure: No Diagnostics - Vital Signs Vital Signs Temp Pulse Resp BP Pulse Ox 09/05/19 13:03 69 17 113/78 98 09/05/19 13:00 51 15 95 09/05/19 12:00 65 13 95 09/05/19 11:35 9 09/05/19 11:22 99.2 F 77 18 131/76 100 - Laboratory Lab Results: Lab Results 09/05/19 09/05/19 09/05/19 Range/Units 11:39 11:39 11:39 WBC 6.3 (3.5-10.8) 10^3/uL RBC 4.91 (4.18-5.48) 10^6 /uL Hgb 15.4 (14.0-18.0) g/dL Hct 44 (42-52) % MCV 90 (80-94) fL MCH 31 (27-31) pg MCHC 35 (31-36) g/dL RDW 13 (10-15) % Plt Count 179 (150-450) 10^3/uL MPV 9.7 (7.4-10.4) fL Neut % (Auto) 76.9 % Lymph % (Auto) 16.2 % [place] % (Auto) 5.8 % Eos % (Auto) 0.1 % Baso % (Auto) 1.0 % Absolute Neuts (auto) 4.8 (1.5-7.7) 10^3/ul Absolute Lymphs (auto) 1.0 (1.0-4.8) 10^3/ul Absolute Monos (auto) 0.4 (0-0.8) 10^3/ul Absolute Eos (auto) 0.0 (0-0.6) 10^3/ul Absolute Basos (auto) 0.1 (0-0.2) 10^3/ul Absolute Nucleated RBC 0.0 10^3/ul Nucleated RBC % 0.2 INR (Anticoag Therapy) 1.09 (0.82-1.09) Sodium 138 (135-145) mmol/L Potassium 4.0 (3.5-5.0) mmol/L Chloride 104 (101-111) mmol/L Carbon Dioxide 28 (22-32) mmol/L Anion Gap 6 (2-11) mmol/L BUN 13 (6-24) mg/dL Creatinine 1.08 (0.67-1.17) mg/dL Est GFR ( Amer) 86.2 (>60) Est GFR (Non-Af Amer) 71.3 (>60) BUN/Creatinine Ratio 12.0 (8-20) Glucose 102 H (70-100) mg/dL Calcium 10.0 (8.6-10.3) mg/dL Total Bilirubin 1.00 (0.2-1.0) mg/dL AST 19 (13-39) U/L ALT 22 (7-52) U/L Alkaline Phosphatase 68 (34-104) U/L Troponin I 0.00 (<0.04) ng/mL B-Natriuretic Peptide (<=100) pg/mL Total Protein 7.2 (6.4-8.9) g/dL Albumin 4.6 (3.2-5.2) g/dL Globulin 2.6 (2-4) g/dL Albumin/Globulin Ratio 1.8 (1-3) 09/05/19 Range/Units 11:39 WBC (3.5-10.8) 10^3/uL RBC (4.18-5.48) 10^6 /uL Hgb (14.0-18.0) g/dL Hct (42-52) % MCV (80-94) fL MCH (27-31) pg MCHC (31-36) g/dL RDW (10-15) % Plt Count (150-450) 10^3/uL MPV (7.4-10.4) fL Neut % (Auto) % Lymph % (Auto) % [place] % (Auto) % Eos % (Auto) % Baso % (Auto) % Absolute Neuts (auto) (1.5-7.7) 10^3/ul Absolute Lymphs (auto) (1.0-4.8) 10^3/ul Absolute Monos (auto) (0-0.8) 10^3/ul Absolute Eos (auto) (0-0.6) 10^3/ul Absolute Basos (auto) (0-0.2) 10^3/ul Absolute Nucleated RBC 10^3/ul Nucleated RBC % INR (Anticoag Therapy) (0.82-1.09) Sodium (135-145) mmol/L Potassium (3.5-5.0) mmol/L Chloride (101-111) mmol/L Carbon Dioxide (22-32) mmol/L Anion Gap (2-11) mmol/L BUN (6-24) mg/dL Creatinine (0.67-1.17) mg/dL Est GFR ( Amer) (>60) Est GFR (Non-Af Amer) (>60) BUN/Creatinine Ratio (8-20) Glucose (70-100) mg/dL Calcium (8.6-10.3) mg/dL Total Bilirubin (0.2-1.0) mg/dL AST (13-39) U/L ALT (7-52) U/L Alkaline Phosphatase (34-104) U/L Troponin I (<0.04) ng/mL B-Natriuretic Peptide 23 (<=100) pg/mL Total Protein (6.4-8.9) g/dL Albumin (3.2-5.2) g/dL Globulin (2-4) g/dL Albumin/Globulin Ratio (1-3) Result Diagrams: 09/05/19 11:39 09/05/19 11:39 Lab Statement: Any lab studies that have been ordered have been reviewed, and results considered in the medical decision making process. Disposition - Course Course Of Treatment: On arrival into the ED, the patient appears well, nondiaphoretic and nontoxic in appearing. He continues to endorse upper anterior neck pain without bilateral side neck pain. Denies any posterior cervical spine tenderness. Denies any pain to in between the scapula. Denies abdominal pain, urinary symptoms, back pain. Does endorse some nausea intermittently, but does not feel it is associated specifically with his symptoms. He was also endorsing some dizziness, however this has been present times several months. Her previous ED note, he had dizziness and anterior throat symptoms back in March of this year. Recent Holter monitor 1.5 months ago showed no acute findings. Previous EKG and troponin were both negative. On todays visit, labs were obtained including a troponin of 0.00. EKG obtained which shows a normal sinus rhythm. He did have 2 PVCs, however this resolved and was observed for another hour without evidence of PVCs. He also states he is currently asymptomatic in the ED. CXR negative for acute cardiopulmonary disease. Consulted with attending, Dr. Barber. HEART SCORE = 3. LOW RISK. Pt has family history and personal history of hypercholesterolemia. Pt feels OK to be discharged home at this time to follow up with Dr. Barber on Sep 18 as scheduled. - Differential Dx - Cardiopulmonary Differential Diagnoses - Cardiopulmonary: Other - esophageal spasms, angina, anxiety, panic disorder, palpitations, dysphagia - Diagnoses Provider Diagnoses: Atypical chest pain, Dizziness - Physician Notifications Discussed Care Of Patient With: Jack Barber Instructed by Provider To: Have Pt Call For Appt. - pt will call Dr. Mclaughlni and Dr. Barber's office for close follow ups Discharge ED - Sign-Out/Discharge Documenting (check all that apply): Patient Departure - Discharge Plan Condition: Stable Disposition: HOME Patient Education Materials: Chest Pain (ED), Esophageal Spasm (ED) Referrals: Yoel Barber DO [Medical Doctor] - 1 Week (fast HR, feeling of spasms in the upper throat) Benja Mclaughlin MD [Primary Care Provider] - 1 Week Additional Instructions: Please follow up with Dr. Mclaughlin next week I have given you a follow up with cardiology - please call to make an appt today I have also given you information on esophageal spasms, but it is unclear the etiology of your symptoms Your EKG, labs and chest xray were all negative on todays visit If any symptoms become worse - please return to the ED immediately - Billing Disposition and Condition Condition: STABLE Disposition: Home - Attestation Statements Provider Attestation: I was available for consult. This patient was seen by the OLIVIA. The patient was not presented to, seen by, or examined by me. Osvaldo Cameron MD
[2019-09-05 13:53] VITALS: BP 116/71
== END 2019-09-05 13:45 | disposition home or self-care (01) ==
LOC: ED 11:20
DX: R07.89 Other chest pain (principal); R42 Dizziness and giddiness; R49.0 Dysphonia; M54.2 Cervicalgia; M54.6 Pain in thoracic spine; R10.13 Epigastric pain; E78.00 Pure hypercholesterolemia, unspecified
CPT/HCPCS: 36415; 71046; 80053; 83880; 84484; 85025; 85610; 93005; 99282